=== PATIENT | male | born 1995 | race Caucasian/White ===

== ENCOUNTER 2021-07-17 07:45 | Emergency (ER) | payer BC ==
[2021-07-17 09:43] LABS: HEMOGLOBIN 14.6 gm/dl (14.0-17.5); RED BLOOD COUNT 4.86 M/UL (4.20-5.50); WHITE BLOOD COUNT 8.4 K/UL (4.5-11.0)
[2021-07-17 09:44] LABS: BUN/CREATININE RATIO 10 (0-10)
[2021-07-17] MEDS ORDERED: DOXYCYCLINE HY100 M2 PO (12:18)
[2021-07-17] MEDS ORDERED: ERYTHROMYCIN OP1 GM EYELF (12:18)
[2021-07-17] MEDS ORDERED: MEDROL DOSEPAK 24 MG PO (12:18)
[2021-07-19 16:15] LABS: E. CHAFFEENSIS (HME) IGG TITER Negative (Neg:<1:64); E. CHAFFEENSIS (HME) IGM TITER Negative (Neg:<1:20)
== END 2021-07-17 12:47 | disposition home or self-care (01) ==
LOC: ER1 07:45
PROVIDERS: Physician Assistant Medical
DX: G51.0 Bell's palsy (principal); R21 Rash and other nonspecific skin eruption
CPT/HCPCS: 70450; 80053; 82550; 82553; 84484; 85025; 85610; 86666; 93005; 99284

== ENCOUNTER 2021-08-26 11:30 | Emergency (ER) | payer OTHER ==
[~2021-08-26 11:30] MED LIST: DOXYCYCLINE HY100 M2 PO; ERYTHROMYCIN OP1 GM EYELF; MEDROL DOSEPAK 24 MG PO
[2021-08-26] MEDS ORDERED: CEPHALEXIN500 M1 PO (12:50)
== END 2021-08-26 13:15 | disposition home or self-care (01) ==
LOC: ER1 11:30
DX: S41.111A Laceration without foreign body of right upper arm, initial encounter (principal); F17.220 Nicotine dependence, chewing tobacco, uncomplicated; W45.8XXA Other foreign body or object entering through skin, initial encounter; Y99.0 Civilian activity done for income or pay; Z23 Encounter for immunization
CPT/HCPCS: 12032; 90715; 99282